=== PATIENT | female | born 1985 | race Two or more races ===

== ENCOUNTER 2024-05-30 18:30 | Emergency (ER) | payer OTHER, MEDICAID, SELFPAY ==
[2024-05-30 18:34] VITALS: BMI 36.2
--- NOTE | 2024-05-30 18:37 | EKG_ITS ---
[facility] Test Date: 2024-05-30 Pat Name: JC EDGE Department: Room: - Gender: Female [employer]ing [employer]: : 1985 Requested By: ED Temporary Provider Order Number: [id number] Reading MD: ED Temporary Provider Measurements Intervals [place] Rate: 90 P: 39 MA: 142 QRS: 46 QRSD: 96 T: 41 QT: 354 QTc: 434 Interpretive Statements SINUS RHYTHM No previous ECG available for comparison /store/S0/[id number]/ecg/[id number].pdf
[2024-05-30 18:47] VITALS: BP 157/92; PULSE 90; RESP 18; TEMP 37.7; O2SAT 98
--- NOTE | 2024-05-30 19:04 | XR_ITS ---
Examination: CTA chest with intravenous contrast 2-D reconstructions 3-D reconstructions, vascular Date and time of exam: May 30, 2024 2136 hrs. Indications: Shortness of breath chest pain beginning 9:00 AM this morning back pain beginning 2 days ago CTDI: vol (mGy) 21.14 DLP: (mGycm) 485 Technique: Multiple axial sections of the thorax have been obtained. 3 mm slice thickness, from below the hemidiaphragms to above the apices of the lungs. Mediastinal and lung density settings have been obtained. 2-D sagittal and coronal reconstructions. 3-D angiographic renderings, 3-D volume renderings, 3D post processing, vascular maximum intensity projections obtained. Contrast administered is 100 cc Isovue-370. Intravenous Low dose protocols were performed. One or more of the following dose reduction techniques were used; automated exposure control, adjustment of the mA and/or KV according to patient size, use of iterative reconstruction technique. Findings: No thoracic aortic aneurysm dilatation or dissection Pulmonary artery opacification is very poor No paratracheal tracheobronchial or bronchopulmonary adenopathy Prominent pneumonia in the posterior segment left upper lobe Anterior liver cyst Fatty infiltration throughout the liver Contracted gallbladder No pancreatic or adrenal mass No hydronephrosis Mild osteopenia Impression: Pulmonary artery opacification is very poor, no gross pulmonary artery emboli Prominent pneumonia in the posterior segment left upper lobe
--- NOTE | 2024-05-30 19:06 | PD.EDRME ---
Rapid Medical Screening Exam RME Arrival date/time: 05/30/24 18:30 39-year-old female who recently received Lupron injection reports with complaints of shortness of breath chest and left arm pain since this morning Chief Complaint: Shortness of Breath/Dyspnea Time Seen by Provider: 05/30/24 18:46 Vital signs: Vital Signs Temperature 100 F 05/30/24 18:47 Pulse Rate 90 05/30/24 18:47 Respiratory Rate 18 05/30/24 18:47 Blood Pressure 157/92 H 05/30/24 18:47 Pulse Oximetry (%) 98 05/30/24 18:47 Oxygen Delivery Method Room Air 05/30/24 18:47
[2024-05-30 19:38] LABS: Basophils # (Auto) 0.1 Thou/mm3 (0.0-0.2); Basophils % (Auto) 0 % (0-2.5); Eosinophils # (Auto) 0.3 Thou/mm3 (0.0-0.5); Eosinophils % (Auto) 3 % (0-10); Hematocrit 37.2 % (36.0-46.0); Hemoglobin 12.5 g/dL (12.0-16.0); Immature Granulocytes % (Auto) 0 % (0-0); Immature Granulocytes Auto 0.04 Thou/mm3 (0.00-0.00); Lymphocytes # (Auto) 1.8 Thou/mm3 (1.0-4.8); Lymphocytes % (Auto) 15 % (10-50); Mean Corpuscular HGB Conc 33.6 g/dl (31.0-37.0); Mean Corpuscular Hemoglobin 27.7 pg (25.0-35.0); Mean Corpuscular Volume 83 fL (80-100); Monocytes # (Auto) 0.8 Thou/mm3 (0.0-0.8); Monocytes % (Auto) 7 % (0-12); Neutrophils # (Auto) 9.1 Thou/mm3 (1.8-7.7); Neutrophils % (Auto) 75 % (37-80); Nucleated Red Blood Cell % 0 /100 WBC (0); Platelet Count 329 Thou/mm3 (140-440); RDW Standard Deviation 43.9 fL (36.4-46.3); Red Blood Count 4.51 Miln/mm3 (4.00-5.20); White Blood Count 12.2 Thou/mm3 (3.6-11.0)
[2024-05-30 19:54] LABS: INR 1.1 (0.9-1.3); Partial Thromboplastin Time 29.1 Seconds (22.0-36.0); Prothrombin Time 11.6 Seconds (9.0-12.2)
[2024-05-30 19:58] LABS: Alanine Aminotransferase 40 U/L (10-49); Albumin, Serum 4.9 gm/dL (3.5-5.0); Albumin/Globulin Ratio 1.6 (1.2-2.2); Alkaline Phosphatase 142 U/L (46-116); Anion Gap 6 (7-16); Aspartate Amino Transferase 20 U/L (0-34); BUN/Creatinine Ratio 11 Ratio (12-20); Bilirubin,Total 0.8 mg/dL (0.3-1.2); Blood Urea Nitrogen 11 mg/dL (9-23); Calcium 9.6 mg/dL (8.3-10.6); Calcium (Corrected) 9.6 mg/dL (8.5-10.1); Carbon Dioxide 28.9 mMol/L (20.0-31.0); Chloride 104 mMol/L (98-107); Estimated Creatinine Clearance 78.7 mL/min (>60); Glucose 143 mg/dL (74-106); Osmolality,Calculated 278 (275-295); Potassium 4.4 mMol/L (3.4-5.1); Sodium 139 mMol/L (136-145); Total Protein 7.9 gm/dL (5.7-8.2); Troponin I < 0.002 ng/mL (0.0-0.045); eGFR > 60 See Note
[2024-05-30 20:03] LABS: HCG,Qualitative Serum Negative
[2024-05-30 20:19] VITALS: BP 150/72; PULSE 95; RESP 18; TEMP 37.4; O2SAT 99
--- NOTE | 2024-05-30 20:22 | EDNOTE_ITS ---
ED SOB =RME/HPI General Chief Complaint: Shortness of Breath/Dyspnea Stated Complaint: CXP SINCE 0900, NUMBNESS TO L ARM@ 1730, SOB @1630 Time Seen by Provider: 05/30/24 18:46 Arrival date/time: 05/30/24 18:30 Limitations: no limitations RME / HPI RME / HPI Narrative: 05/30/24 18:30 39-year-old female who recently received Lupron injection reports with complaints of shortness of breath chest and left arm pain since this morning --------- Dr. Garcia's Main ED Evaluation: 39yo female presents to the ED for a chief complaint of shortness of breath. Patient states she started having generalized chest pain at 0500, reporting she took Tylenol without any allevition of symptoms. She states her pain radiated to her left arm and back. She endorses associated chills. She states she started having shortness of breath after work, so she came in for evaluation. She denies any N/V/D or any other associated symptoms. No known allergies. Related Data Previous Rx's ?Medication ?Instructions ?Recorded hydrocodone 5 mg-acetaminophen 325 1 tab PO Q6H #14 tabs 08/28/17 mg tablet (Seward) ibuprofen 600 mg tablet 600 mg PO TID #30 tabs 08/28/17 ferrous sulfate 325 mg (65 mg 325 mg PO QDAY #30 tabs 04/06/23 iron) tablet ibuprofen 800 mg tablet 800 mg PO Q8H PRN pain #20 tabs 04/06/23 amoxicillin 500 mg tablet 1,000 mg (2 x 500 mg) PO BID #10 05/31/24 tabs Allergies Allergy/AdvReac Type Severity Reaction Status Date / Time No Known Allergies Allergy Verified 05/30/24 18:36 Review of Systems Review of Systems Systems Reviewed: All systems reviewed, normal except as documented Past Medical History Past Medical History CARDIAC: Negative Cardiac Disorders or Congestive Heart Failure RESPIRATORY: Negative Chronic Obstructive Pulmonary Disease (COPD) or Asthma GENITOURINARY: Negative Renal Disease ENDOCRINE: Negative Diabetes Mellitus Type 1 or Diabetes Mellitus Type 2 HEMATOLOGIC: Negative Sickle Cell Disease Social History SMOKING STATUS: Never smoker ED Exam General Limitations: Present no limitations General appearance: Present alert and in no apparent distress Head Head exam: Present atraumatic Eye Eye exam: Present normal appearance, PERRL and EOMI ENT ENT exam: Present normal exam, normal oropharynx and mucous membranes moist Neck Neck exam: Present normal inspection, full ROM and trachea midline Chest Chest inspection: Present normal inspection and symmetric chest wall rise Respiratory Respiratory exam: Present normal lung sounds bilaterally Cardiovascular Cardiovascular exam: Present regular rate, normal rhythm and normal heart sounds Abdominal Exam Abdominal exam: Present soft and normal bowel sounds Extremities Exam Extremities exam: Present normal inspection and full ROM Back Exam Back exam: Present normal inspection and full ROM Neurological Exam Neurological exam: Present alert, oriented X3 and CN II-XII intact Psychiatric Psychiatric exam: Present normal affect and normal mood Skin Skin exam: Present warm, dry, intact and normal color Course Course Course Narrative: CXR is ordered for determining the etiology of shortness of breath. Quality Measures none Orders Category Date Time Status CT Screening NOW Care 05/30/24 19:05 Completed EKG (ED ONLY) *Do not use* NOW Care 05/30/24 18:[address] angio chest Stat Exams 05/30/24 19:04 Completed EKG (ED Only) Stat Exams 05/30/24 18:37 Draft CBC Stat Lab 05/30/24 19:19 Completed CMP [Comprehensive Metabolic Panel] Stat Lab 05/30/24 19:19 Completed HCG,Qualitative Serum Stat Lab 05/30/24 19:19 Completed PT [Prothrombin Time with INR] Stat Lab 05/30/24 19:19 Completed PTT [Partial Thromboplastin Time] Stat Lab 05/30/24 19:19 Completed Troponin I Stat Lab 05/30/24 19:19 Completed Acetaminophen Tab [Tylenol Tab] Med 05/30/24 20:25 Discontinued 1,000 mg PO X1 ONE Amoxicillin Cap [Amoxil Cap] Med 05/31/24 00:41 Discontinued 1,000 mg PO X1 ONE Amoxicillin Susp [Amoxil Susp] Med 05/31/24 00:23 Discontinued 1,000 mg PO X1 ONE Ketorolac Inj [Toradol Inj] Med 05/30/24 20:23 Discontinued 30 mg IVP X1 ONE Vital Signs Vital signs: Vital Signs Temperature 100 F 05/30/24 18:47 Pulse Rate 90 05/30/24 18:47 Respiratory Rate 18 05/30/24 18:47 Blood Pressure 157/92 H 05/30/24 18:47 Pulse Oximetry (%) 98 05/30/24 18:47 Oxygen Delivery Method Room Air 05/30/24 18:47 Pulse ox is 98% on room air, which is normal according to my interpretation. Shortness of Breath / Dyspnea Patient data External records reviewed:: [facility] previous records (Per chart review, patient has no relevant previous ED visits or admissions to this facility.) Clinical information provided by:: patient Social determinants that could affect healthcare access:: none Patient has the following chronic illnesses:: none How is presenting disease/condition affected by chronic disease/condition?: no chronic disease Evaluation data The following diagnostics were reviewed and interpreted by me:: lab results, radiology exam(s) and EKG tracing(s) Lab and/or radiology exams considered but not ordered:: none Interpretation Summary: WBC count is elevated at 12.2, CMP is normal, Troponin is negative, HCG is negative, according to my interpretation. EKG done at 1846, NSR, rate of 90, flattening T-waves in lead III, normal intervals, normal axis, no acute ischemia, according to my interpretation. ----- I have personally reviewed the radiology data and agree with the radiologist's interpretation below: [facility] Report Signed Patient: JC EDGE Record#: [id number] Birthdate: 1985 Age/Sex: 39 / F Location: [facility] Attending Dr: Ordering Physician: Mahendra Torres PA-C Date of Service: 05/30/24 Procedure(s): CT angio chest Accession Number(s): [id number] cc: Franky Stuart MD; Durga Becker MD; Mahendra Torres PA-C~ Examination: CTA chest with intravenous contrast 2-D reconstructions 3-D reconstructions, vascular Date and time of exam: May 30, 2024 2136 hrs. Indications: Shortness of breath chest pain beginning 9:00 AM this morning back pain beginning 2 days ago CTDI: vol (mGy) 21.14 DLP: (mGycm) 485 Technique: Multiple axial sections of the thorax have been obtained. 3 mm slice thickness, from below the hemidiaphragms to above the apices of the lungs. Mediastinal and lung density settings have been obtained. 2-D sagittal and coronal reconstructions. 3-D angiographic renderings, 3-D volume renderings, 3D post processing, vascular maximum intensity projections obtained. Contrast administered is 100 cc Isovue-370. Intravenous Low dose protocols were performed. One or more of the following dose reduction techniques were used; automated exposure control, adjustment of the mA and/or KV according to patient size, use of iterative reconstruction technique. Findings: No thoracic aortic aneurysm dilatation or dissection Pulmonary artery opacification is very poor No paratracheal tracheobronchial or bronchopulmonary adenopathy Prominent pneumonia in the posterior segment left upper lobe Anterior liver cyst Fatty infiltration throughout the liver Contracted gallbladder No pancreatic or adrenal mass No hydronephrosis Mild osteopenia Impression: Pulmonary artery opacification is very poor, no gross pulmonary artery emboli Prominent pneumonia in the posterior segment left upper lobe Dictated By: Durga Becker MD Signed By: <Electronically signed by Durga Becker MD in OV> 05/30/24 2201 Medications / Prescriptions Medications or Prescriptions considered but not ordered:: none Medication administrations:: Medication Administration History Discontinued Medications Acetaminophen (Acetaminophen 325 Mg Tablet) 1,000 mg PO X1 ONE Stop: 05/30/24 20:26 Last Admin: 05/30/24 21:54 Dose: 1,000 mg Documented By: KITTY Amoxicillin (Amoxicillin Susp 250 Mg/5 Ml Udc) 1,000 mg PO X1 ONE Stop: 05/31/24 00:24 Last Admin: 05/31/24 00:46 Dose: Not Given Documented By: KITTY Non-Admin Reason: Discontinued Amoxicillin (Amoxicillin 250 Mg Capsule) 1,000 mg PO X1 ONE Stop: 05/31/24 00:42 Last Admin: 05/31/24 00:56 Dose: 1,000 mg Documented By: KITTY Ketorolac Tromethamine (Ketorolac Inj 30 Mg/Ml Vial) 30 mg IVP X1 ONE Stop: 05/30/24 20:24 Last Admin: 05/30/24 21:54 Dose: 30 mg Documented By: KITTY see above, if any Consultations Consultation(s) initiated? (list below): No Diagnosis Shortness of Breath Differential Diagnosis: community acquired pneumonia, pulmonary embolism and other (dehydration, electrolyte abnormality) Most likely diagnosis given after review of the tests above:: see below Admission Indicated Admission indicated?: not indicated Admission Request Was there a request for admission?: No Disposition Plan Disposition Plan: Discharge Discharge Attestation Discharge Attestation: The patient and all family members were given an opportunity to ask questions and understood the discharge instructions. Discharge instructions specifically effects, indications for sooner follow up or return to the emergency department, and the expected course of current diagnosis. Patient condition: Stable Discharge Plan Plan Patient Disposition: HOME (Self Care) Patient condition on transfer: Stable Prescriptions/Referrals Prescriptions/Med Rec: New amoxicillin 500 mg tablet 1,000 mg PO BID Qty: 10 0RF No Action ibuprofen 600 mg tablet 600 mg PO TID Qty: 30 0RF hydrocodone-acetaminophen [Seward] 5-325 mg tablet 1 tab PO Q6H MDD 6 Qty: 14 0RF ferrous sulfate 325 mg (65 mg iron) tablet 325 mg PO QDAY Qty: 30 0RF ibuprofen 800 mg tablet 800 mg PO Q8H PRN (Reason: pain) Qty: 20 0RF Referrals: Franky Stuart MD [Primary Care Provider] - In 1 week Problem List Clinical Impression: Community acquired pneumonia Patient/Caregiver Discharge Instructions Education Materials: ED Pneumonia (Adult) Additional Instructions: It a pleasure meeting you today. You will be taking amoxicillin 1000 mg twice a day for the next 5 days. You can use the inhaler if needed if you have a cough 2-3 times a day. Ensure you are drinking plenty fluids so that you can stay hydrated. If you are on control pills you will need to use alternate form of control for the next 30 days because you will be on antibiotics. Print Language: German Stand Alone Forms: Susy Award Info., Patient Portal Info Letter
[2024-05-30] MEDS: ACETAMINOPHEN 325 MG TABLET 1000 MG PO (21:54)
[2024-05-30] MEDS: KETOROLAC INJ 30 MG/ML VIAL IVP (21:54)
[2024-05-31 00:09] VITALS: BP 126/73; PULSE 84; RESP 18; TEMP 37.1; O2SAT 97
[2024-05-31] MEDS: AMOXICILLIN 250 MG CAPSULE 1000 MG PO (00:56)
== END 2024-05-31 01:07 | disposition home or self-care (01) ==
PROVIDERS: Physician Assistant; Emergency Provider Emergency Medicine; PCP Family Medicine
DX: J18.9 Pneumonia, unspecified organism (principal)
CPT/HCPCS: 36415; 71275; 80053; 84484; 84703; 85025; 85610; 85730; 93005; 96374; 99285; A4649; J1885; Q9967; A9270